=== PATIENT | male | born 1970 | race Caucasian/White ===

== ENCOUNTER 2016-12-23 07:23 | Day surgery (SDC) | payer OTHER ==
[~2016-12-23] VITALS: Ht 175.3 cm; Wt 86.3 kg
[~2016-12-23 07:23] MED LIST: BLOOD PRESSURE MED
[2016-12-23] MEDS ORDERED: OMEPRAZOLE (07:39)
[2016-12-23 07:40] VITALS: Ht 175.3 cm; Wt 86.3 kg
[2016-12-23] MEDS ORDERED: LIDOCAINE 4% SOLUTION 50 ML BTL ONE (08:00)
[2016-12-23 08:14] VITALS: BP 137/81; PULSE 59; RESP 18
[2016-12-23] MEDS ORDERED: FENTAnyl 50 MCG/ML VIAL ONE (08:47)
[2016-12-23] MEDS ORDERED: MIDAZOLAM 1 MG/ML 2 ML INJ ONE ×2 (08:47)
[2016-12-23 08:54] VITALS: BP 123/70; RESP 20
--- NOTE | 2016-12-27 16:58 | OPR ---
DATE OF OPERATION: 12/23/2016 PROCEDURE: Esophagogastroduodenoscopy. PREOPERATIVE DIAGNOSIS: A patient presenting with history of chronic heartburn unresponsive to omeprazole. Rule out esophagitis, rule out Alvarado's esophagus. POSTOPERATIVE DIAGNOSIS: 1. Mild reflux esophagitis, Mcandrews classification A; biopsies done. 2. Diffuse patchy gastritis; biopsy was done to rule out Helicobacter pylori from the antrum, lesser curvature and the fundus; duodenum normal. PROCEDURE: After the informed written consent is obtained, the patient was asked to lay on the left lateral side. Three mg Versed and 75 mcg of fentanyl were given as intravenous anesthesia. When the patient became somnolent, Olympus video upper endoscope was introduced into the oropharynx, and then into the esophagus. Esophagus showed evidence of erythema just above the GE junction indicating reflux esophagitis, and biopsies were done to rule out Alvarado's esophagus. The scope, at this time, was advanced into the stomach. Several areas of erythema noted in a patchy distribution. Biopsy was done from the antrum, the lesser curvature and the fundus and no additional abnormalities detected. The scope, at this time, was advanced into the duodenum. Mucosa of the duodenum appeared normal up and into the third portion. The scope, at this time, was withdrawn. No additional abnormalities detected, and the procedure was terminated. PLAN: Recommend proton pump inhibitor therapy to be changed to Dexilant 60 mg before each meal. Meanwhile, wait for the pathology report. Dictated By: Vaibhav Pham MD /vic/ec /Document#: [id number] ; [facility]
== END 2016-12-23 08:55 | disposition home or self-care (01) ==
LOC: GIL 07:23
PROVIDERS: ATTEND Internal Medicine Gastroenterology
DX: K21.0 Gastro-esophageal reflux disease with esophagitis (principal); K29.50 Unspecified chronic gastritis without bleeding; E78.00 Pure hypercholesterolemia, unspecified; I10 Essential (primary) hypertension
CPT/HCPCS: 43239; 88305; 88312; J2250; J3010; Z7610